=== PATIENT | male | born 1990 | race Caucasian/White ===

== ENCOUNTER 2022-11-28 16:47 | Inpatient (IN) | payer OTHER ==
[2022-11-28] MEDS ORDERED: SODIUM CHLORIDE 0.9% 500 ML INFUS.BAG IV ONE (17:19)
[2022-11-28] MEDS ORDERED: morphine CARPU-JECT 4 MG/1 ML DISP.SYRIN IVPUSH ONE (17:19)
[2022-11-28] MEDS ORDERED: morphine SULFATE 4 MG/ML VIAL ONE (17:26)
[2022-11-28 18:39] LABS: BASO % 0.7 % (0-2.0); EOS % 0.7 % (0-4.5); HEMATOCRIT 43.3 % (35.4-49); LYMPH % 20.3 % (8-40); MCH 29.3 pg (25.7-33.7); MCHC 34.7 g/dl (32.0-35.9); MEAN CELL VOLUME 84.5 fl (80-96); MEAN PLT VOLUME 8.4 fl (7.5-11.1); MONO % 6.7 % (3.8-10.2); NEUT % 71.6 % (42.8-82.8); PLATELET COUNT 261 10^3/uL (134-434); RBC 5.12 M/mm3 (4.00-5.60); RDW 13.2 % (11.9-15.9); WHITE BLOOD COUNT 9.5 K/mm3 (4.0-10.0)
[2022-11-28 18:46] LABS: POTASSIUM 3.8 mmol/L (3.5-5.1)
[2022-11-28 18:47] LABS: CALCIUM 9.1 mg/dL (8.5-10.1)
[2022-11-28 18:48] LABS: ALBUMIN 4.3 g/dl (3.4-5.0); BLOOD UREA NITROGEN 8.2 mg/dL (7-18); MAGNESIUM 2.1 mg/dL (1.8-2.4)
[2022-11-28 18:51] LABS: CREATININE 0.9 mg/dL (0.55-1.3)
[2022-11-28 18:51] LABS: INR 1.04 (0.83-1.09); PROTHROMBIN TIME (PATIENT) 12.1 SEC (9.7-13.0)
[2022-11-28 18:53] LABS: BILIRUBIN,TOTAL 0.4 mg/dL (0.2-1); TOT PROT 7.7 g/dl (6.4-8.2)
[2022-11-28 18:54] LABS: ACTIVATED PTT 30.4 SECONDS (25.2-36.5)
[2022-11-28] MEDS ORDERED: cefOXitin SODIUM 1 GM/10 ML PUSH (RESTRICTED TO ID) IVPUSH ONE (21:44)
[2022-11-29 01:56] VITALS: BMI 39.2
[2022-11-29] MEDS ORDERED: SODIUM CHLORIDE 1,000 ML IV SCH (02:30)
[2022-11-29] MEDS: CEFOXITIN SODIUM 1 GM in DEXTROSE 5%-WATER 100 ML IVPB SCH ×2 (04:15→15:11)
[2022-11-29] MEDS ORDERED: SUCCINYLCHOLINE CHLORIDE 200 MG/10 ML SYRINGE ONE (07:41)
[2022-11-29] MEDS ORDERED: PROPOFOL 40 ML ONE (07:41)
[2022-11-29] MEDS ORDERED: BUPIVACAINE HCL/PF 0.25% (2.5MG/ML) 10 ML VIAL ONE (07:43)
[2022-11-29] MEDS ORDERED: ONDANSETRON 4 MG/2 ML VIAL IVPUSH PRN ×2 (08:15→11:44)
[2022-11-29] MEDS ORDERED: oxyCODONE HCL 5 MG TABLET PO PRN ×6 (08:15→14:26)
[2022-11-29] MEDS ORDERED: LACTATED RINGERS SOLUTION 1,000 ML IV SCH ×2 (08:15→11:44)
[2022-11-29 08:37] LABS: HEMATOCRIT 40.1 % (35.4-49); HEMOGLOBIN 14.4 GM/dL (11.7-16.9); MCH 30.4 pg (25.7-33.7); MCHC 35.8 g/dl (32.0-35.9); MEAN CELL VOLUME 84.7 fl (80-96); MEAN PLT VOLUME 8.8 fl (7.5-11.1); PLATELET COUNT 241 10^3/uL (134-434); RBC 4.73 M/mm3 (4.00-5.60); RDW 12.7 % (11.9-15.9); WHITE BLOOD COUNT 8.4 K/mm3 (4.0-10.0)
[2022-11-29] MEDS ORDERED: MIDAZOLAM HCL 2 MG/2 ML SINGLE DOSE VIAL ONE (08:58)
[2022-11-29 09:00] LABS: POTASSIUM 3.9 mmol/L (3.5-5.1)
[2022-11-29 09:03] LABS: CALCIUM 8.8 mg/dL (8.5-10.1)
[2022-11-29 09:04] LABS: ALBUMIN 3.6 g/dl (3.4-5.0); BLOOD UREA NITROGEN 8.3 mg/dL (7-18)
[2022-11-29 09:07] LABS: CREATININE 0.7 mg/dL (0.55-1.3)
[2022-11-29 09:08] LABS: TOT PROT 6.7 g/dl (6.4-8.2)
[2022-11-29 09:09] LABS: BILIRUBIN,TOTAL 0.6 mg/dL (0.2-1)
[2022-11-29] MEDS ORDERED: cefOXitin SODIUM 2 GM VIAL (RESTRICTED TO ID) IVPB ONE ×2 (09:16→09:32)
[2022-11-29] MEDS ORDERED: ROCURONIUM BROMIDE 50 MG/5 ML SYRINGE ONE (09:25)
[2022-11-29] MEDS ORDERED: cefoTEtan DISODIUM 1 GM VIAL (RESTRICTED TO ID) IVPB ONE (09:32)
[2022-11-29] MEDS ORDERED: KETOROLAC TROMETHAMINE 30 MG/1 ML VIAL ONE (09:45)
[2022-11-29] MEDS ORDERED: DEXAMETHASONE SOD PHOSPHATE 4 MG/1 ML VIAL ONE (09:45)
[2022-11-29] MEDS ORDERED: ONDANSETRON 4 MG/2 ML VIAL ONE (09:45)
[2022-11-29] MEDS ORDERED: BUPIVACAINE HCL/PF 0.5% (5 MG/ML) 30 ML VIAL IJ ONE ×2 (09:59)
[2022-11-29] MEDS ORDERED: SUGAMMADEX SODIUM 200 MG/2 ML VIAL ONE (10:12)
[2022-11-29] MEDS: SODIUM CHLORIDE 1,000 ML IV SCH ×2 (11:51→12:00)
[2022-11-29] MEDS ORDERED: KETOROLAC TROMETHAMINE 30 MG/1 ML VIAL IM PRN (14:24)
[2022-11-29] MEDS: ACETAMINOPHEN 1000 MG/100 ML BAG IVPB SCH ×2 (17:05→22:35)
[2022-11-29] MEDS ORDERED: CEFOXITIN SODIUM 1 GM in DEXTROSE 5%-WATER 100 ML IVPB SCH (18:00)
[2022-11-30] MEDS ORDERED: CEFOXITIN SODIUM 1 GM in DEXTROSE 5%-WATER 100 ML IVPB SCH (02:00)
[2022-11-30] MEDS: ACETAMINOPHEN 1000 MG/100 ML BAG IVPB SCH ×2 (06:11→11:33)
[2022-11-30 10:52] VITALS: BP 133/76; PULSE 67; RESP 20; TEMP 98.8
[2022-11-30] MEDS ORDERED: ACETAMINOPHEN 325 MG TABLET (FP) PO PRN (11:17)
[2022-11-30 11:22] LABS: BASO % 0.5 % (0-2.0); EOS % 0.6 % (0-4.5); HEMATOCRIT 40.5 % (35.4-49); HEMOGLOBIN 13.9 GM/dL (11.7-16.9); LYMPH % 27.1 % (8-40); MCH 29.3 pg (25.7-33.7); MCHC 34.4 g/dl (32.0-35.9); MEAN CELL VOLUME 85.2 fl (80-96); MEAN PLT VOLUME 8.2 fl (7.5-11.1); NEUT % 62.8 % (42.8-82.8); PLATELET COUNT 232 10^3/uL (134-434); RBC 4.75 M/mm3 (4.00-5.60); RDW 13.1 % (11.9-15.9); WHITE BLOOD COUNT 9.8 K/mm3 (4.0-10.0)
[2022-11-30 11:41] LABS: POTASSIUM 3.8 mmol/L (3.5-5.1)
[2022-11-30 11:44] LABS: CALCIUM 8.9 mg/dL (8.5-10.1)
[2022-11-30 11:45] LABS: ALBUMIN 3.6 g/dl (3.4-5.0); BLOOD UREA NITROGEN 9.8 mg/dL (7-18); MAGNESIUM 2.4 mg/dL (1.8-2.4)
[2022-11-30 11:48] LABS: CREATININE 0.8 mg/dL (0.55-1.3)
[2022-11-30 11:49] LABS: BILIRUBIN,TOTAL 0.5 mg/dL (0.2-1)
[2022-11-30 11:50] LABS: TOT PROT 6.6 g/dl (6.4-8.2)
== END 2022-11-30 15:04 | disposition home or self-care (01) | DRG 225 ==
LOC: JER 16:47 → JERBED 21:50 → J8W 11-29 01:03
PROVIDERS: ADMIT Internal Medicine; ATTEND Nurse Practitioner Family
PROC: 0DTJ4ZZ Resection of Appendix, Percutaneous Endoscopic Approach (ICD-10-PCS; principal; 2022-11-29 09:00)
DX: K35.80 Unspecified acute appendicitis (principal); E66.9 Obesity, unspecified; Z68.39 Body mass index [BMI] 39.0-39.9, adult; R10.31 Right lower quadrant pain
CPT/HCPCS: 36415; 74177-TC; 80053; 83735; 85025; 85027; 85610; 85730; 86850; 86900; 86901; 88304-TC; 93005; 93010; 94760; 99285-25; C9803-CS; Q9967; U0003; U0005